=== PATIENT | female | born 1960 | race Caucasian/White ===

== ENCOUNTER 2019-04-11 10:31 | Observation (INO) ==
[2019-04-11] MEDS ORDERED: Aspirin 81 MG TAB.CHEW PO ONE (10:52)
[2019-04-11] MEDS ORDERED: Isovue-370 500 ML BOTTLE IVP ONE (11:00)
[2019-04-11 11:22] LABS: Basophils # 0.1 K/mcL (0.0-0.2); Basophils % 0.9 %; Eosinophils # 0.3 K/mcL (0.0-0.6); Eosinophils % 3.2 %; Hematocrit 42.4 % (35.3-44.9); Hemoglobin 13.5 g/dL (11.5-15.4); Immature Granulocytes % 0.9 % (0-4); Lymphocytes # 2.2 K/mcL (0.6-4.6); Lymphocytes % 20.7 %; Mean Corpuscular HGB Conc 31.8 g/dL (31.6-35.5); Mean Corpuscular Hemoglobin 28.4 pg (28.0-33.3); Mean Corpuscular Volume 89.3 fL (83.0-100.0); Mean Platelet Volume 10.4 fL (9.4-12.4); Monocytes # 0.9 K/mcL (0.0-1.3); Monocytes % 8.4 %; Platelet Count 271 K/mcL (140-400); Red Blood Count 4.75 M/mcL (3.82-4.97); Red Cell Distribution Width 14.8 % (11.5-14.5); Segmented Neutrophils % 65.9 %; White Blood Count 10.6 K/mcL (4.3-11.1)
[2019-04-11 11:35] LABS: INR 0.9; Prothrombin Time 9.9 Seconds (9.4-12.1)
[2019-04-11 11:37] LABS: Activated Partial Thrombo Time 27.5 Seconds (26.0-36.0)
[2019-04-11 11:43] LABS: BUN/Creatinine Ratio 24 (6-26); Blood Urea Nitrogen 23 mg/dL (8-23); Calcium 9.5 mg/dL (8.6-10.3); Carbon Dioxide 27 mEq/L (23-29); Chloride 104 mEq/L (98-107); Glucose 116 mg/dL (70-105); Osmolality,Calculated 295 (280-300); Potassium 4.3 mEq/L (3.5-5.1); Sodium 140 mEq/L (136-145); Troponin I < 0.03 ng/mL (< 0.04); eGFR For African Americans > 60 (> 60); eGFR For Non-African Americans 59 (> 60)
[2019-04-11 11:57] LABS: Bilirubin,Urine Negative (Negative); Blood,Urine Negative (Negative); Clarity,Urine Clear (Clear); Color,Urine Yellow (Yellow); Glucose,Urine (UA) Normal (Normal); Ketones,Urine Negative (Negative); Leukocyte Esterase,Urine Trace (Negative); Nitrite,Urine Negative (Negative); Protein,Urine Negative (Neg-Trace); Specific Gravity,Urine 1.018 (1.010-1.025); Urobilinogen,Urine Normal (Normal)
[2019-04-11 11:59] LABS: Bacteria,Urine None Seen per hpf (None-Few); Hyaline Casts,Urine None Seen per lpf (None-Few); RBC,Urine 0-3 per hpf (0-3); Squamous Epithelial Cell,Urine Many per lpf (None-Few); WBC,Urine 0-3 per hpf (0-3)
--- NOTE | 2019-04-11 12:33 | Emergency Department Note ---
Disposition Clinical Impression: Hypertension Qualifiers: Hypertension type: unspecified Qualified Code(s): I10 - Essential (primary) hypertension Chest pain Qualifiers: Chest pain type: unspecified Qualified Code(s): R07.9 - Chest pain, unspecified Disposition: Admitted As Inpatient Condition: Fair Time of Disposition: 14:00 Chest Pain HPI - General Chief Complaint: ED General Medical Stated Complaint: Hypertension Time Seen by Provider: 04/11/19 10:36 Source: patient Mode of arrival: private vehicle Limitations: no limitations Vital Signs Reviewed: Yes Nursing Notes Reviewed: Yes - History of Present Illness HPI Narrative: 59-year-old female who recently had a heart catheterization with stent placement one month ago that states that since the catheterization she has been feeling lightheaded, intermittent chest tightness, shortness of breath, intermittent diaphoresis. Patient was started on a number of medications after her catheterization and states that since her She is just not felt well. Patient states that there are no exacerbating or relieving factors for her chest heaviness or shortness of breath. She also states that she could be getting out of the bath and all of a sudden break out in a sweat. She notes that they drove to [place] near the end of March. She also notes bilateral lower extremity pain with palpation. She notes a history of PE several years ago. She is on Brlinta for anticoagulation. Severity scale (1-10): 0 - Related Data Home Medications Medication Instructions Recorded Confirmed Aspirin [Lo-Dose Aspirin EC] 81 mg PO DAILY 01/02/19 04/11/19 Furosemide [Lasix] 40 mg PO DAILY PRN 01/02/19 04/11/19 Lisinopril/Hydrochlorothiazide 1 each PO DAILY 01/02/19 04/11/19 [Zestoretic 10-12.5 mg Tablet] Meloxicam [Mobic] 15 mg PO DAILY 01/02/19 04/11/19 Nitroglycerin [Nitrostat] 0.4 mg SL Q5M PRN 01/02/19 04/11/19 Potassium Chloride [K-Tab ER] 20 meq PO DAILY 01/02/19 04/11/19 Pravastatin Sodium [Pravachol] 80 mg PO HS 01/02/19 04/11/19 Keflex PO QID 04/11/19 Previous Rx's Medication Instructions Recorded Ticagrelor [Brilinta] 90 mg PO BID #60 tablet 01/02/19 Allergies Allergy/AdvReac Type Severity Reaction Status Date / Time penicillin V Allergy Rash Verified 03/19/16 07:18 Review of Systems: In addition to that documented in the HPI above, the additional ROS was obtained: Constitutional: Denies fevers or chills Eyes: Denies vision changes ENMT: Denies sore throat CV: reports intermittent chest heaviness Resp: Reports intermittent SOB GI: Denies vomiting or diarrhea : Denies painful urination MSK: Denies recent trauma Skin: Denies new rashes Neuro: Denies new numbness or tingling or weakness Endocrine: Denies unexpected weight loss Heme: Denies bleeding disorders Chest Pain PMH - Past Medical History Medical history: Reports: arthritis, hyperlipidemia, hypertension Surgical history: Reports: other Psychiatric history: Reports: no psych history - Social History Smoking Status: Former smoker Alcohol use: Reports: none Drug use: Reports: none Physical Exam General: A&O x 3. No acute distress. Well developed, well nourished. Head: atraumatic, normocephalic. ENT: No conjunctival injection, no scleral icterus. PERRLA. EOMI. Oropharynx non- erythematous. mucous membranes moist. Neuro: No focal deficits, no speech deficit, no facial droop, mentating well. BUE/BLE Str 5/5. Pulm: Lungs CTAB A/P. No wheezes, rales, ronchi. Cardio: RRR with allison-systolic murmur best appreciated in aortic LP 3/6. Chest not tender to palpation. Abd: Soft, non-distended. Normoactive bowel sounds. Non-tender to palpation. No guarding. Non rigid. Extremities: Radial pulses 2+ on left. dorsalis pedis/posterior tibialis 2+ yuli. No LE edema. No cyanosis, clubbing. Skin: warm, dry, intact. No rashes. Psych: Appropriate mood and affect. Answers questions appropriately. Cooperative with exam. - General Limitations: no limitations General appearance: alert, in no apparent distress Course Vital Signs Temperature 97.6 F 04/11/19 10:36 Pulse Rate 61 04/11/19 10:36 Respiratory Rate 18 04/11/19 10:36 Blood Pressure 145/98 04/11/19 10:36 O2 Sat by Pulse Oximetry 97 04/11/19 10:36 Temperature 97.6 F 04/11/19 10:36 Pulse Rate 64 04/11/19 13:35 Respiratory Rate 17 04/11/19 13:35 Blood Pressure 106/54 04/11/19 13:35 O2 Sat by Pulse Oximetry 100 04/11/19 13:35 Oxygen Delivery Oxygen Delivery Room Air Chest Pain - MDM Narrative Medical decision making narrative: 59-year-old female with a past medical history of heart catheterization approximately one month ago with placement of stent. Patient notes that since that time she has just been feeling weak, worn down, with intermittent chest pressure associated with intermittent diaphoresis and shortness of breath. Given patient's history and risk factors she could benefit from further inpatien t workup. Additionally patient has a history of aortic stenosis, she had an echo in November of this year which diagnosed it as moderate aortic stenosis. Patient will receive a chest x-ray, EKG, chest pain workup including CBC and troponin. Pt was given an aspirin. Patient was admitted to the hospitalist Dr. Emanuel who agreed to take the patient to his care. Results of the workup including any imaging and/or labwork was shared with the patient at bedside. Patient was given an opportunity to ask questions at bedside and all of their concerns were addressed. Patient verbalized understanding and agreement with plan of care. Pt remained stable while in the department. - Medical Records Medical records reviewed: Yes I reviewed the patient's medical records. - Lab Data Lab results reviewed: Yes I reviewed the patient's lab results. Result diagrams: 04/11/19 11:09 04/11/19 11:09 Lab Results 04/11/19 04/11/19 04/11/19 Range/Units 11:09 11:09 11:09 WBC 10.6 (4.3-11.1) K/mcL RBC 4.75 (3.82-4.97) M/mcL Hgb 13.5 (11.5-15.4) g/dL Hct 42.4 (35.3-44.9) % MCV 89.3 (83.0-100.0) fL MCH 28.4 (28.0-33.3) pg MCHC 31.8 (31.6-35.5) g/dL RDW 14.8 H (11.5-14.5) % Plt Count 271 (140-400) K/mcL MPV 10.4 (9.4-12.4) fL Immature Gran % 0.9 (0-4) % Seg Neutrophils % 65.9 % Lymphocytes % 20.7 % Monocytes % 8.4 % Eosinophils % 3.2 % Basophils % 0.9 % Neutrophils # 7.0 (1.6-8.9) K/mcL Lymphocytes # 2.2 (0.6-4.6) K/mcL Monocytes # 0.9 (0.0-1.3) K/mcL Eosinophils # 0.3 (0.0-0.6) K/mcL Basophils # 0.1 (0.0-0.2) K/mcL PT 9.9 (9.4-12.1) Seconds INR 0.9 APTT 27.5 (26.0-36.0) Seconds Sodium 140 (136-145) mEq/L Potassium 4.3 (3.5-5.1) mEq/L Chloride 104 (98-107) mEq/L Carbon Dioxide 27 (23-29) mEq/L BUN 23 (8-23) mg/dL Creatinine 0.96 (0.60-1.20) mg/dL Est GFR ( Amer) > 60 (> 60) Est GFR (Non-Af Amer) 59 L (> 60) BUN/Creatinine Ratio 24 (6-26) Glucose 116 H (70-105) mg/dL Calculated Osmolality 295 (280-300) Calcium 9.5 (8.6-10.3) mg/dL Troponin I < 0.03 (< 0.04) ng/mL Urine Color (Yellow) Urine Clarity (Clear) Urine pH (5.0-8.0) pH Units Ur Specific [place] (1.010-1.025) Urine Protein (Neg-Trace) mg/dL Urine Glucose (UA) (Normal) mg/dL Urine Ketones (Negative) mg/dL Urine Blood (Negative) Urine Nitrite (Negative) Urine Bilirubin (Negative) Urine Urobilinogen (Normal) mg/dL Ur Leukocyte Esterase (Negative) Urine Microscopic RBC (0-3) per hpf Urine Microscopic WBC (0-3) per hpf Ur Squamous Epith Cells (None-Few) per lpf Urine Bacteria (None-Few) per hpf Hyaline Casts (None-Few) per lpf Ur Culture Indicated? (NO) 04/11/19 Range/Units 11:35 WBC (4.3-11.1) K/mcL RBC (3.82-4.97) M/mcL Hgb (11.5-15.4) g/dL Hct (35.3-44.9) % MCV (83.0-100.0) fL MCH (28.0-33.3) pg MCHC (31.6-35.5) g/dL RDW (11.5-14.5) % Plt Count (140-400) K/mcL MPV (9.4-12.4) fL Immature Gran % (0-4) % Seg Neutrophils % % Lymphocytes % % Monocytes % % Eosinophils % % Basophils % % Neutrophils # (1.6-8.9) K/mcL Lymphocytes # (0.6-4.6) K/mcL Monocytes # (0.0-1.3) K/mcL Eosinophils # (0.0-0.6) K/mcL Basophils # (0.0-0.2) K/mcL PT (9.4-12.1) Seconds INR APTT (26.0-36.0) Seconds Sodium (136-145) mEq/L Potassium (3.5-5.1) mEq/L Chloride (98-107) mEq/L Carbon Dioxide (23-29) mEq/L BUN (8-23) mg/dL Creatinine (0.60-1.20) mg/dL Est GFR ( Amer) (> 60) Est GFR (Non-Af Amer) (> 60) BUN/Creatinine Ratio (6-26) Glucose (70-105) mg/dL Calculated Osmolality (280-300) Calcium (8.6-10.3) mg/dL Troponin I (< 0.04) ng/mL Urine Color Yellow (Yellow) Urine Clarity Clear (Clear) Urine pH 6.0 (5.0-8.0) pH Units Ur Specific [place] 1.018 (1.010-1.025) Urine Protein Negative (Neg-Trace) mg/dL Urine Glucose (UA) Normal (Normal) mg/dL Urine Ketones Negative (Negative) mg/dL Urine Blood Negative (Negative) Urine Nitrite Negative (Negative) Urine Bilirubin Negative (Negative) Urine Urobilinogen Normal (Normal) mg/dL Ur Leukocyte Esterase Trace H (Negative) Urine Microscopic RBC 0-3 (0-3) per hpf Urine Microscopic WBC 0-3 (0-3) per hpf Ur Squamous Epith Cells Many H (None-Few) per lpf Urine Bacteria None Seen (None-Few) per hpf Hyaline Casts None Seen (None-Few) per lpf Ur Culture Indicated? YES A (NO) - Radiology Data Radiology results reviewed: Yes I reviewed the patient's radiology results. Chest X-Ray 04/11/19 10:52 IMPRESSION: 1. No radiographic finding to account for patient's chest pain. D/ / Jose Stapleton MD / Jose Stapleton MD Interpreting Provider: Jose Stapleton MD Dissection 04/11/19 11:00 IMPRESSION: 1. No evidence of thoracic aortic dissection, aneurysm, or intramural hematoma. 2. Coronary artery atherosclerosis. 3. Hepatic steatosis. 4. Sigmoid diverticulosis. No evidence of diverticulitis. D/ : / 04/11/2019 12:56:58 Jose Stapleton MD / ita Interpreting Provider: Jose Stapleton MD - EKG Data EKG attestation: Yes I reviewed and interpreted this EKG. EKG results narrative: Heart rate 62, rhythm sinus, axis normal. Intervals within normal limits. Low voltage and extremity in precordial leads. Less than [address] depression noted in leads V3, V5. Flattened T waves noted in lead V1, V6. T-wave inversion noted in lead V2 through V5. When compared with previous EKG dated 01/02/2019 the previous EKG also shows ST depression but in leads V2 through V5 with T-wave inversions in the same leads. The current EKG is improved from previous. Heart Score - Score History: Moderately Suspicious EKG: Non Specific repolarisation Disturbance Age: 45-65 Risk Factors: Equal/Greater than 3 risk factor or history of atherosclerotic disease Troponin: Less than normal limit HEART Score Total: 5
--- NOTE | 2019-04-11 13:29 | Internal Med History&Physical ---
Date of Encounter: 04/11/19 Time of Encounter: 13:14 Internal Medicine - H&P: HPI Chief complaint: Chest Pressure Admitted From: Home Plans for Post Hospital Care: Home History of present illness: Ms. 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 Patient had recent PCI to her RCA 01/02/19. Of note, all other vessels with minimal disease. Says she has never fully recovered from this procedure and experiences profound RAYA. Denies orthopnea or LE edema. Does occasionally have exertional chest pain 1-2 times per week that goes away with rest. BP has been variable but mostly low-nl since her [facility]. Says SBP 160's in the morning but the rest of the days SBP is in the 90's and patient feels lightheadedness/dizziness from this. Takes her BP with 3 different machines with similar readings. Went to loom operator apprentice office today and SBP >220 and patient complaining of her usual periodic chest pains so was sent to the ED. In the ED, initial BP of 129/72 and all other VSS. EKG without ischemic changes. Initial trop negative. UA with trace LE and reflexed to culture. CXR and CTA chest without acute findings. Admitted to medicine. Past Med Surg Social Fam HX - Past Medical History Medical history: arthritis, hyperlipidemia, hypertension Psychiatric history: no psych history - Past Surgical History Surgical History: other Additional surgical history: TUBAL LIGATION - Social History Smoking Status: Former smoker Smokeless Tobacco Status: No Alcohol use: none Drug use: none - Family History Mother Living Status: Still Living Internal Medicine - H&P: Meds Aspirin [Lo-Dose Aspirin EC] 81 mg PO DAILY 01/02/19 [History] Furosemide [Lasix] 40 mg PO DAILY PRN 01/02/19 [History] Lisinopril/Hydrochlorothiazide [Zestoretic 10-12.5 mg Tablet] 1 each PO DAILY 01/02/19 [History] Meloxicam [Mobic] 15 mg PO DAILY 01/02/19 [History] Nitroglycerin [Nitrostat] 0.4 mg SL Q5M PRN 01/02/19 [History] Potassium Chloride [K-Tab ER] 20 meq PO DAILY 01/02/19 [History] Pravastatin Sodium [Pravachol] 80 mg PO HS 01/02/19 [History] Ticagrelor [Brilinta] 90 mg PO BID #60 tablet 01/02/19 [Rx] Keflex PO QID 04/11/19 [History] Allergy/AdvReac Type Severity Reaction Status Date / Time penicillin V Allergy Rash Verified 03/19/16 07:18 All Systems PM: A 10-system review of systems was performed and is negative for pertinent findings except as documented above in the HPI. Review of systems: General: Fevers / Chills / Weight loss / Night sweats / Diaphoresis Eyes: Blurry Vision / Change in Vision HENT: Ear Pain / Ear Drainage / Rhinorrhea / Throat Pain / Lymphadenopathy Cardiovascular: Chest Pain / Palpatations / Orthopnea / RAYA / Weight gain Lungs: Dyspnea / Wheezing / Cough / Sputum production / Pleurisy Abdomen: Abdomen pain / Abdominal distention / Nausea / Vomiting / Diarrhea / Const : Dysuria / Urinary Frequency / Urinary Urgency / Hematuria Extremities: LE edema / Ext pain / Ext erythema Skin: Rashes / Abrasions / Contusions Psych: Hallucinations / Anxiety / Depression Neuro: Weakness / Numbness / Tingling / Facial Droop / Dysphagia - Constitutional Vitals: Temp Pulse Resp BP Pulse Ox 97.6 F 53 18 129/72 99 04/11/19 10:36 04/11/19 11:20 04/11/19 11:20 04/11/19 11:20 04/11/19 11:20 Exam: General: Ill-appearing and in no acute distress HEENT: No erythema of posterior pharynx. No exudates. Lymphatics: No mandibular or cervical lymphadenopathy Cardiovascular: RRR. No murmurs. No chest wall tenderness. Lungs: Clear to auscelltation bilaterally. Regular chest rise. Abdomen: Non-tender. No rebound or gaurding. Nl bowel sounds. Extremities: No edema. 2+ pulses radial and pedal pulses Skin: No rahses, abrasions, or contusions. Nl cap refill. Psych: Nl attention. A&Ox3 Neuro: tanning solution maker II-XII intact. 5/5 strength. Sensation to light touch and pinprick intact. Internal Med - H&P Results - Labs CBC & Chem 7: 04/11/19 11:09 04/11/19 11:09 Labs: Short CBC 04/11/19 Range/Units 11:09 WBC 10.6 (4.3-11.1) K/mcL Hgb 13.5 (11.5-15.4) g/dL Hct 42.4 (35.3-44.9) % Plt Count 271 (140-400) K/mcL Neutrophils # 7.0 (1.6-8.9) K/mcL BMP 04/11/19 11:09 Sodium 140 Potassium 4.3 Chloride 104 Carbon Dioxide 27 BUN 23 Creatinine 0.96 Glucose 116 H Calcium 9.5 Cardiac Enzymes 04/11/19 Range/Units 11:09 Troponin I < 0.03 (< 0.04) ng/mL Urine 04/11/19 Range/Units 11:35 Urine Color Yellow (Yellow) Urine Clarity Clear (Clear) Urine pH 6.0 (5.0-8.0) pH Units Ur Specific [place] 1.018 (1.010-1.025) Urine Protein Negative (Neg-Trace) mg/dL Urine Glucose (UA) Normal (Normal) mg/dL - Impressions ITS Impressions Chest X-Ray 04/11/19 10:52 IMPRESSION: 1. No radiographic finding to account for patient's chest pain. D/ / Jose Stapleton MD / Jose Stapleton MD Interpreting Provider: Jose Stapleton MD Dissection 04/11/19 11:00 IMPRESSION: 1. No evidence of thoracic aortic dissection, aneurysm, or intramural hematoma. 2. Coronary artery atherosclerosis. 3. Hepatic steatosis. 4. Sigmoid diverticulosis. No evidence of diverticulitis. D/ : / 04/11/2019 12:56:58 Jose Stapleton MD / ita Interpreting Provider: Jose Stapleton MD - Assessment and Plan (1) Chest pain Current Visit: Yes Status: Acute Assessment and plan: hx of CAD s/p LIANET to RCA 01/02/19, HTN, and HFpEF presents with chest pain in the setting of stable vitals, unremarkable physical exam, EKG without ischemic changes, negative initial troponin, and CTA of the chest without evidence of dissection. -Patient still having intermittent cp since last [facility] -Minimal CAD in other vessels so less likely this represents ischemic heart disease unless catastrophic plaque rupture PLAN: - S/p ASA 324mg x1 then 81mg qd thereafter - Serial troponins - Continue home CHRIS, statin, and BB Qualifiers: Chest pain type: other chest pain Qualified Code(s): R07.89 - Other chest pain; R07.8 - Other chest pain (2) CAD (coronary artery disease) Current Visit: Yes Status: Acute Assessment and plan: See above Qualifiers: Coronary Disease-Associated Artery/Lesion type: [place] artery [place] vs. transplanted heart: [place] heart Associated angina: with stable angina Qualified Code(s): I25.118 - Atherosclerotic heart disease of [place] coronary artery with other forms of angina pectoris (3) RAYA (dyspnea on exertion) Current Visit: Yes Status: Acute Assessment and plan: Presents with dyspnea on exertion since [facility] completed in December. -No signs of heart failure on exam and patient denies orthopnea or lower extremity edema. We will obtain BNP -Hx of CAD but disease not extensive and is s/p RCA stent -Low-nl BP at baseline. May need to go down on BP meds (especially metoprolol) because this can cause exertional fatigue -Very possible patient has JOSEPH with or without PH. Failed at home sleep study and prior auth needed for inpatient sleep study so hasn't completed this yet -Hx of moderate and she and her family is concerned that this has progressed and is causing her sx (unlikely given last TTE only months ago) -We will assess for thyroid disease with TSH PLAN: - Consult to cardiology given follows closely with cards and recent [facility] - Consult to cardiac rehab - may be of benefit for patient at time of discharge - Cut back on metoprolol dosing once med rec is complete - Will have SW see status of prior auth for sleep study - Limited echo to eval for progression of and R-sided pressures - TSH (4) Aortic stenosis Current Visit: Yes Status: Acute Assessment and plan: See above Qualifiers: Cardiac valve disease etiology: nonrheumatic Qualified Code(s): I35.0 - Nonrheumatic aortic (valve) stenosis (5) Labile blood pressure Current Visit: Yes Status: Acute Assessment and plan: 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 Hypertensive at loom operator apprentice's office but normally low normal blood pressures and is symptomatic from this. Also history of diffuse episodic diaphoresis. Will check plasma metanephrines. - Cut back on metoprolol dosing once med rec is complete - Plasma metanephrines
--- NOTE | 2019-04-11 14:03 | Emergency Department Note ---
Disposition Clinical Impression: Hypertension Qualifiers: Hypertension type: unspecified Qualified Code(s): I10 - Essential (primary) hypertension Chest pain Qualifiers: Chest pain type: unspecified Qualified Code(s): R07.9 - Chest pain, unspecified Disposition: Admitted As Inpatient Condition: Good Time of Disposition: 14:04 General Adult HPI - General Chief complaint: ED General Medical Stated complaint: Hypertension Time Seen by Provider: 04/11/19 10:36 Source: patient Mode of arrival: private vehicle Limitations: no limitations - History of Present Illness Pain Scale: 0 - Related Data Home Medications Medication Instructions Recorded Confirmed Aspirin [Lo-Dose Aspirin EC] 81 mg PO DAILY 01/02/19 01/02/19 Furosemide [Lasix] 40 mg PO DAILY PRN 01/02/19 01/02/19 Lisinopril/Hydrochlorothiazide 1 each PO DAILY 01/02/19 01/02/19 [Zestoretic 10-12.5 mg Tablet] Meloxicam [Mobic] 15 mg PO DAILY 01/02/19 01/02/19 Nitroglycerin [Nitrostat] 0.4 mg SL Q5M PRN 01/02/19 01/02/19 Potassium Chloride [K-Tab ER] 20 meq PO DAILY 01/02/19 01/02/19 Pravastatin Sodium [Pravachol] 80 mg PO HS 01/02/19 01/02/19 Previous Rx's Medication Instructions Recorded Ticagrelor [Brilinta] 90 mg PO BID #60 tablet 01/02/19 Allergies Allergy/AdvReac Type Severity Reaction Status Date / Time penicillin V Allergy Rash Verified 03/19/16 07:18 Past Medical History - Past Medical History Medical history: Reports: arthritis, hyperlipidemia, hypertension Surgical history: Reports: other Psychiatric history: Reports: no psych history - Social History Smoking Status: Former smoker Smokeless Tobacco Status: No Alcohol use: Reports: none Drug use: Reports: none Physical Exam - General Limitations: no limitations General appearance: alert, in no apparent distress Course Vital Signs Temperature 97.6 F 04/11/19 10:36 Pulse Rate 61 04/11/19 10:36 Respiratory Rate 18 04/11/19 10:36 Blood Pressure 145/98 04/11/19 10:36 O2 Sat by Pulse Oximetry 97 04/11/19 10:36 Temperature 97.6 F 04/11/19 10:36 Pulse Rate 64 04/11/19 13:35 Respiratory Rate 17 04/11/19 13:35 Blood Pressure 106/54 04/11/19 13:35 O2 Sat by Pulse Oximetry 100 04/11/19 13:35 Oxygen Delivery Oxygen Delivery Room Air Medical Decision Making - Lab Data Result diagrams: 04/11/19 11:09 04/11/19 11:09 Lab Results 04/11/19 04/11/19 04/11/19 Range/Units 11:09 11:09 11:09 WBC 10.6 (4.3-11.1) K/mcL RBC 4.75 (3.82-4.97) M/mcL Hgb 13.5 (11.5-15.4) g/dL Hct 42.4 (35.3-44.9) % MCV 89.3 (83.0-100.0) fL MCH 28.4 (28.0-33.3) pg MCHC 31.8 (31.6-35.5) g/dL RDW 14.8 H (11.5-14.5) % Plt Count 271 (140-400) K/mcL MPV 10.4 (9.4-12.4) fL Immature Gran % 0.9 (0-4) % Seg Neutrophils % 65.9 % Lymphocytes % 20.7 % Monocytes % 8.4 % Eosinophils % 3.2 % Basophils % 0.9 % Neutrophils # 7.0 (1.6-8.9) K/mcL Lymphocytes # 2.2 (0.6-4.6) K/mcL Monocytes # 0.9 (0.0-1.3) K/mcL Eosinophils # 0.3 (0.0-0.6) K/mcL Basophils # 0.1 (0.0-0.2) K/mcL PT 9.9 (9.4-12.1) Seconds INR 0.9 APTT 27.5 (26.0-36.0) Seconds Sodium 140 (136-145) mEq/L Potassium 4.3 (3.5-5.1) mEq/L Chloride 104 (98-107) mEq/L Carbon Dioxide 27 (23-29) mEq/L BUN 23 (8-23) mg/dL Creatinine 0.96 (0.60-1.20) mg/dL Est GFR ( Amer) > 60 (> 60) Est GFR (Non-Af Amer) 59 L (> 60) BUN/Creatinine Ratio 24 (6-26) Glucose 116 H (70-105) mg/dL Calculated Osmolality 295 (280-300) Calcium 9.5 (8.6-10.3) mg/dL Troponin I < 0.03 (< 0.04) ng/mL Urine Color (Yellow) Urine Clarity (Clear) Urine pH (5.0-8.0) pH Units Ur Specific [place] (1.010-1.025) Urine Protein (Neg-Trace) mg/dL Urine Glucose (UA) (Normal) mg/dL Urine Ketones (Negative) mg/dL Urine Blood (Negative) Urine Nitrite (Negative) Urine Bilirubin (Negative) Urine Urobilinogen (Normal) mg/dL Ur Leukocyte Esterase (Negative) Urine Microscopic RBC (0-3) per hpf Urine Microscopic WBC (0-3) per hpf Ur Squamous Epith Cells (None-Few) per lpf Urine Bacteria (None-Few) per hpf Hyaline Casts (None-Few) per lpf Ur Culture Indicated? (NO) 04/11/19 Range/Units 11:35 WBC (4.3-11.1) K/mcL RBC (3.82-4.97) M/mcL Hgb (11.5-15.4) g/dL Hct (35.3-44.9) % MCV (83.0-100.0) fL MCH (28.0-33.3) pg MCHC (31.6-35.5) g/dL RDW (11.5-14.5) % Plt Count (140-400) K/mcL MPV (9.4-12.4) fL Immature Gran % (0-4) % Seg Neutrophils % % Lymphocytes % % Monocytes % % Eosinophils % % Basophils % % Neutrophils # (1.6-8.9) K/mcL Lymphocytes # (0.6-4.6) K/mcL Monocytes # (0.0-1.3) K/mcL Eosinophils # (0.0-0.6) K/mcL Basophils # (0.0-0.2) K/mcL PT (9.4-12.1) Seconds INR APTT (26.0-36.0) Seconds Sodium (136-145) mEq/L Potassium (3.5-5.1) mEq/L Chloride (98-107) mEq/L Carbon Dioxide (23-29) mEq/L BUN (8-23) mg/dL Creatinine (0.60-1.20) mg/dL Est GFR ( Amer) (> 60) Est GFR (Non-Af Amer) (> 60) BUN/Creatinine Ratio (6-26) Glucose (70-105) mg/dL Calculated Osmolality (280-300) Calcium (8.6-10.3) mg/dL Troponin I (< 0.04) ng/mL Urine Color Yellow (Yellow) Urine Clarity Clear (Clear) Urine pH 6.0 (5.0-8.0) pH Units Ur Specific [place] 1.018 (1.010-1.025) Urine Protein Negative (Neg-Trace) mg/dL Urine Glucose (UA) Normal (Normal) mg/dL Urine Ketones Negative (Negative) mg/dL Urine Blood Negative (Negative) Urine Nitrite Negative (Negative) Urine Bilirubin Negative (Negative) Urine Urobilinogen Normal (Normal) mg/dL Ur Leukocyte Esterase Trace H (Negative) Urine Microscopic RBC 0-3 (0-3) per hpf Urine Microscopic WBC 0-3 (0-3) per hpf Ur Squamous Epith Cells Many H (None-Few) per lpf Urine Bacteria None Seen (None-Few) per hpf Hyaline Casts None Seen (None-Few) per lpf Ur Culture Indicated? YES A (NO) Attestation Statement - Attestation Attestation: I reviewed the residents documentation and agree with the residents assessment and plan of care. I have personally had face to face time with the patient. (Brief History, Brief Exam, and MDM) I personally supervised and was present for the srivastava/critical portions of the following procedures completed by the resident: EKG 59 mathew old female presets to the ED from Cardiology office where she was found to be increasingly hypertensive and diaphoretic and exertional dyspnea. Patient states that she has one cardiac stent that was placed in January by Dr. briseno of this year. [place] is not hyeprtensive now but has been fluctuatin in her blood presure while being here. CTA dissection study is negative and she otherwise has a moderate heart score and becase she was symptomatic we will admit to fco. troponin negative at this time, although the possibily for elevation is there, bselin EKG without changes of new ischemic changes
[2019-04-11] MEDS ORDERED: *HR* Promethazine 25 MG/ML VIAL IVP PRN (14:33)
[2019-04-11] MEDS ORDERED: Ondansetron ODT 4 MG TAB.RAPDIS SL PRN (14:33)
[2019-04-11] MEDS ORDERED: Naloxone 0.4 MG/ML INJ IVP PRN (14:33)
--- NOTE | 2019-04-11 15:20 | Electrocardiograph Report ---
[address] [address] Test Date: 2019-04-11 Pat Name: 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
[2019-04-11] MEDS ORDERED: Nitroglycerin 0.4 MG TAB.SUBL SL PRN (15:54)
[2019-04-11] MEDS: *HR* Heparin 5,000 UNIT/ML VIAL SQ SCH (17:46)
[2019-04-11] MEDS: *HR* Ticagrelor 90 MG TABLET PO SCH (21:16)
[2019-04-12 02:20] LABS: Basophils # 0.1 K/mcL (0.0-0.2); Basophils % 0.8 %; Eosinophils # 0.4 K/mcL (0.0-0.6); Eosinophils % 4.1 %; Hematocrit 39.4 % (35.3-44.9); Hemoglobin 12.6 g/dL (11.5-15.4); Immature Granulocytes % 0.6 % (0-4); Lymphocytes # 2.5 K/mcL (0.6-4.6); Lymphocytes % 25.3 %; Mean Corpuscular Hemoglobin 29.1 pg (28.0-33.3); Mean Platelet Volume 10.5 fL (9.4-12.4); Monocytes # 0.9 K/mcL (0.0-1.3); Monocytes % 8.9 %; Neutrophils # 5.9 K/mcL (1.6-8.9); Platelet Count 256 K/mcL (140-400); Red Blood Count 4.33 M/mcL (3.82-4.97); Red Cell Distribution Width 14.9 % (11.5-14.5); Segmented Neutrophils % 60.3 %; White Blood Count 9.7 K/mcL (4.3-11.1)
[2019-04-12 02:41] LABS: BUN/Creatinine Ratio 24 (6-26); Blood Urea Nitrogen 23 mg/dL (8-23); Calcium 9.2 mg/dL (8.6-10.3); Carbon Dioxide 28 mEq/L (23-29); Chloride 104 mEq/L (98-107); Glucose 127 mg/dL (70-105); Osmolality,Calculated 295 (280-300); Potassium 3.9 mEq/L (3.5-5.1); Sodium 140 mEq/L (136-145); eGFR For African Americans > 60 (> 60); eGFR For Non-African Americans 60 (> 60)
[2019-04-12] MEDS: *HR* Heparin 5,000 UNIT/ML VIAL SQ SCH ×2 (06:08→18:35)
[2019-04-12 06:32] LABS: Troponin I < 0.03 ng/mL (< 0.04)
[2019-04-12] MEDS: Aspirin Enteric Coated 81 MG Tablet PO SCH (09:42)
[2019-04-12] MEDS: *HR* Ticagrelor 90 MG TABLET PO SCH ×2 (09:42→20:05)
--- NOTE | 2019-04-12 10:28 | Cardiology Consult Note ---
Date of Encounter: 04/12/19 Time of Encounter: 09:30 Assessment and Plan (1) CAD (coronary artery disease) Current Visit: Yes Status: Chronic Chest pain free at time of eval. Troponins negative x2. EKG reviewed, NSR without ischemic changes. Reports occasional chest tightness that begins in her left shoulder but believes it is related to her torn rotator cuff. Reports discomfort lasts a short time and goes away on it's own. Denies use of Nitro. -[facility] 01/02/19: severe 1v CAD, LV is normal EF 55%, successful LIANET to mid RCA, otherwise mild disease. Denies any missed doses of DAPT. Continue ASA, Brilinit and statin. BB currently on hold for hypotension. Qualifiers: Coronary Disease-Associated Artery/Lesion type: rincon artery [place] vs. transplanted heart: rincon heart Associated angina: without angina Qualified Code(s): I25.10 - Atherosclerotic heart disease of r[place] coronary artery without angina pectoris (2) Hypertension Current Visit: Yes Status: Acute Blood pressure reportedly 220/140 and 240/100 when presented to see Dr. Sawant in our office yesterday. Brought to the ED and initial blood pressure was 145/98. Home anti-hypertensives have been held and blood pressure over night 89-136 systolic. Episodic blood pressures consistent with patient's reported home blood pressures. Will order orthostatic blood pressures. Lab results pending to assess for pheoc hromocytoma. Will restart HCTZ 12.5mg for now. Vital Signs Temp Pulse Resp BP Pulse Ox 04/12/19 12:42 98.5 F 85 17 166/85 96 04/12/19 06:29 97.9 F 94 16 106/75 95 04/12/19 03:14 97.7 F 81 16 136/83 97 04/11/19 23:51 97.9 F 86 18 89/64 95 04/11/19 19:13 97.9 F 85 17 96/64 97 04/11/19 16:59 98.4 F 77 17 90/61 95 04/11/19 13:35 64 17 106/54 100 Qualifiers: Hypertension type: unspecified Qualified Code(s): I10 - Essential (primary) hypertension (3) RAYA (dyspnea on exertion) Current Visit: Yes Status: Acute States dyspnea, diaphoresis and fatigue have been chronic but worsening in the past few months. Denies palpitations and swelling in her legs. Has Lasix at home and reportedly has not had to use it recently. Hospitalist is evaluating patient for possible Pheochromocytoma. (4) Aortic stenosis Current Visit: Yes Status: Acute Echo 12/08/2018: LVEF 65%, Moderate aortic stenosis with mean gradient 20 mmHg. Repeat echo today with EF 60-65%, now with moderate-severe aortic stenosis, mean gradient 36 mmHg. Will plan to repeat echo in 6 months. Qualifiers: Cardiac valve disease etiology: nonrheumatic Qualified Code(s): I35.0 - Nonrheumatic aortic (valve) stenosis Discussion w patient/family: The assessment and plan as outlined above was discussed with the patient and/or family members who expressed understanding and agreement. All questions were answered. Thank you for involving us in the care of your patient. Please call with any questions. The above assessment and plan will be discussed with Dr. Watson and I will make changes as necessary. History of Present Illness Consult date: 04/11/19 Consult reason: RAYA & fatigue, s/p LIANET in December History of present illness: Ms. Singh is a 59 year old female with PMH of CAD s/p LIANET to RCA 01/02/19, HTN, HFpEF, and mod presents after being sent over by Dr. Sawant's office for HTN and chest pain. Patient had recent PCI to her RCA 01/02/19. Of note, all other vessels with minimal disease. Says she has never fully recovered from this procedure and experiences profound RAYA. Denies orthopnea or LE edema. Does occasionally have exertional chest pain 1-2 times per week that goes away with rest. BP has been variable but mostly low-nl since her [facility]. Says SBP 160's in the morning but the rest of the days SBP is in the 90's and patient feels lightheadedness/dizziness from this. Takes her BP with 3 different machines with similar readings. Blood prssure in our office yesterday was SBP >220 and patient complaining of her usual periodic chest pains so was sent to the ED. In the ED, initial BP of 129/72. Past Med Surg Social Fam HX - Past Medical History Medical history: arthritis, hyperlipidemia, hypertension Psychiatric history: no psych history - Past Surgical History Surgical History: angioplasty/stent Additional surgical history: TUBAL LIGATION - Social History Smoking Status: Former smoker Smokeless Tobacco Status: No Alcohol use: none Drug use: none - Family History Mother Living Status: Still Living Medications and Allergies Aspirin [Lo-Dose Aspirin EC] 81 mg PO DAILY 01/02/19 [History] Furosemide [Lasix] 40 mg PO DAILY PRN 01/02/19 [History] Lisinopril/Hydrochlorothiazide [Zestoretic 10-12.5 mg Tablet] 1 each PO DAILY 01/02/19 [History] Meloxicam [Mobic] 15 mg PO DAILY 01/02/19 [History] Nitroglycerin [Nitrostat] 0.4 mg SL Q5M PRN 01/02/19 [History] Potassium Chloride [K-Tab ER] 20 meq PO DAILY 01/02/19 [History] Ticagrelor [Brilinta] 90 mg PO BID #60 tablet 01/02/19 [Rx] Atorvastatin Calcium [Lipitor] 20 mg PO HS 04/11/19 [History] Cephalexin [Keflex] 500 mg PO QID 04/11/19 [History] Metoprolol [Lopressor] 25 mg PO BID 04/11/19 [History] Allergy/AdvReac Type Severity Reaction Status Date / Time penicillin V Allergy Rash Verified 04/11/19 17:57 All Systems Review: The remainder of the systems were reviewed and are negative - Cardiovascular Cardiovascular: as per HPI Physical Examination Vital Signs, Last 4 Hours Temp Pulse Resp BP Pulse Ox 04/12/19 06:29 97.9 F 94 16 106/75 95 Results 04/12/19 01:35 04/12/19 01:35 Lab Results 04/11/19 04/11/19 04/11/19 11:09 11:09 11:09 WBC 10.6 Hgb 13.5 Hct 42.4 Plt Count 271 INR 0.9 APTT 27.5 Sodium 140 Potassium 4.3 Chloride 104 Carbon Dioxide 27 BUN 23 Creatinine 0.96 Glucose 116 H Calcium 9.5 Troponin I < 0.03 B-Natriuretic Peptide TSH 04/11/19 04/11/19 04/12/19 11:09 16:32 01:35 WBC 9.7 Hgb 12.6 Hct 39.4 Plt Count 256 INR APTT Sodium Potassium Chloride Carbon Dioxide BUN Creatinine Glucose Calcium Troponin I B-Natriuretic Peptide 23 TSH 4.248 04/12/19 01:35 WBC Hgb Hct Plt Count INR APTT Sodium 140 Potassium 3.9 Chloride 104 Carbon Dioxide 28 BUN 23 Creatinine 0.95 Glucose 127 H Calcium 9.2 Troponin I < 0.03 B-Natriuretic Peptide TSH - Imaging and Cardiology Echo: pending Cardiac cath: report reviewed Other Results: 12hr tele reviewed: average HR 80, NSR, no events noted - EKG Interpretation EKG results cardiology: personally reviewed, normal ECG, sinus rhythm Consult Discharge Plan - Plan Referrals: Saul Quintanilla DO [Primary Care Provider] -
[2019-04-12] MEDS: hydroCHLOROthiazide 25 MG TABLET PO SCH (16:06)
--- NOTE | 2019-04-12 16:20 | Internal Med Progress Note ---
Hospitalist Progress Note - Encounter Date of Encounter: 04/12/19 Time of Encounter: 16:20 - Subjective Interval History: Patient was seen and evaluated earlier this morning-she has been a bleeding in the hallway has been experiencing increasing shortness of breath no palpitations heart rate stable. We will perform 6 minute walk test appreciate cardiology recommendations-discuss treatment plan with the patient who verbalizes understanding - Exam Vitals: Temp Pulse Resp BP Pulse Ox 98.1 F 90 18 111/66 97 04/12/19 15:51 04/12/19 15:51 04/12/19 15:51 04/12/19 15:51 04/12/19 15:51 Exam: General: Ill-appearing and in no acute distress HEENT: No erythema of posterior pharynx. No exudates. Lymphatics: No mandibular or cervical lymphadenopathy Cardiovascular: RRR. Systolic murmur No chest wall tenderness. Lungs: Clear to auscelltation bilaterally. Regular chest rise. Abdomen: Non-tender. No rebound or gaurding. Nl bowel sounds. Extremities: No edema. 2+ pulses radial and pedal pulses Skin: No rahses, abrasions, or contusions. Nl cap refill. Psych: Nl attention. 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 5/5 strength. Sensation to light touch and pinprick intact. - Assessment and Plan (1) Chest pain Current Visit: Yes Status: Acute Assessment and Plan: hx of CAD s/p LIANET to RCA 01/02/19, HTN, and HFpEF presents with chest pain in th e setting of stable vitals, unremarkable physical exam, EKG without ischemic changes, negative initial troponin, and CTA of the chest without evidence of dissection. -Patient still having intermittent cp since last [facility] -Minimal CAD in other vessels so less likely this represents ischemic heart disease unless catastrophic plaque rupture PLAN: - S/p ASA 324mg x1 then 81mg qd thereafter - Serial troponins - Continue home CHRIS, statin, and BB 04/12 We will continue with aspirin and statin beta suhas CHRIS Troponins are negative Cardiology has evaluated patient recommending repeat echo (2) CAD (coronary artery disease) Current Visit: Yes Status: Chronic Assessment and Plan: See above (3) Aortic stenosis Current Visit: Yes Status: Acute Assessment and Plan: Echo 12/08/2018: LVEF 65%, Moderate aortic stenosis with mean gradient 20 mmHg. Repeat cardiac echo today with EF of 6065% moderate to severe aortic stenosis with mean gradient of 36 mmHg-cardiology recommending repeat echo in 6 months (4) RAYA (dyspnea on exertion) Current Visit: Yes Status: Acute Assessment and Plan: Presents with dyspnea on exertion since [facility] completed in December. -No signs of heart failure on exam and patient denies orthopnea or lower extremity edema. We will obtain BNP -Hx of CAD but disease not extensive and is s/p RCA stent -Low-nl BP at baseline. May need to go down on BP meds (especially metoprolol) because this can cause exertional fatigue -Very possible patient has JOESPH with or without PH. Failed at home sleep study and prior auth needed for inpatient sleep study so hasn't completed this yet -Hx of moderate and she and her family is concerned that this has progressed and is causing her sx (unlikely given last TTE only months ago) -We will assess for thyroid disease with TSH PLAN: - Consult to cardiology given follows closely with cards and recent [facility] - Consult to cardiac rehab - may be of benefit for patient at time of discharge - Cut back on metoprolol dosing once med rec is complete - Will have SW see status of prior auth for sleep study - Limited echo to eval for progression of and R-sided pressures - TSH 04/12 Cardiology has been consulted and appreciate recommendations Cardiac rehabilitation consultation We will resume metoprolol at 12.5 mg java technical manager evaluating for prior SLEEP STUDY OUTPATIENT Cardiac echo has been completed which does show EF of 6065% moderate to severe aortic stenosis TSH within normal limits evaluating patient for possible Pheochromocytoma. 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 Hypertensive at assisted living care manager's office but normally low normal blood pressures and is symptomatic from this. Also history of diffuse episodic diaphoresis. Will check plasma metanephrines. - Cut back on metoprolol dosing once med rec is complete - Plasma metanephrines 04/12 plasma metanephrines. Pending at this time Resumed low-dose beta suhas Low-dose HCTZ Orthostatic vital signs in the a.m. - Time Spent with Patient Total time spent is greater than 50% in coordination of care (as documented) at patient's floor/unit and/or counseling patient: Internal Medicine: Result - Labs CBC & Chem 7: 04/12/19 01:35 04/12/19 01:35 Labs: Short CBC 04/12/19 Range/Units 01:35 WBC 9.7 (4.3-11.1) K/mcL Hgb 12.6 (11.5-15.4) g/dL Hct 39.4 (35.3-44.9) % Plt Count 256 (140-400) K/mcL Neutrophils # 5.9 (1.6-8.9) K/mcL BMP 04/12/19 01:35 Sodium 140 Potassium 3.9 Chloride 104 Carbon Dioxide 28 BUN 23 Creatinine 0.95 Glucose 127 H Calcium 9.2 Cardiac Enzymes 04/12/19 04/12/19 Range/Units 01:35 12:03 Troponin I < 0.03 < 0.03 (< 0.04) ng/mL - ABG Interpretation ABG results: PT/INR, D-dimer PT 9.9 Seconds (9.4-12.1) 04/11/19 11:09 - Impressions Impressions CT Dissection 04/11/19 11:00 IMPRESSION: 1. No evidence of thoracic aortic dissection, aneurysm, or intramural hematoma. 2. Coronary artery atherosclerosis. 3. Hepatic steatosis. 4. Sigmoid diverticulosis. No evidence of diverticulitis. D/ : / 04/11/2019 12:56:58 Jose Stapleton MD / ita Interpreting Provider: Jose Stapleton MD Echocardiogram 04/12/19 08:00 Impressions: LVEF 60-65%. Normal LV chamber size, wall thickness and function. Mild left ventricular diastolic dysfunction. Normal right ventricular structure and function. Aortic valve not well visualized. Grossly, the leaflets appear calcified. The number of leaflets cannot be determined. Moderate-severe aortic stenosis. Mean gradient 36 mmHg. Peak velocity 4.01 m/s. THONY 0.92 cm2. DVI 0.28. No evidence of pulmonary hypertension. Clinical correlation suggested. Left Ventricular Wall Motion: Rest Echo Findings All wall segments showed normal motion. Findings: Study Quality * Technically sub-optimal due to poor echocardiographic windows. ECG Findings * Normal sinus rhythm. Left Ventricle * LVEF 60-65%. * Normal LV chamber size, wall thickness and function. * Mild left ventricular diastolic dysfunction. Right Ventricle * Normal right ventricular structure and function. Left Atrium * Normal left atrial size. Right Atrium * Normal right atrial size. Interatrial Septum * Interatrial septum not well evaluated. Aortic Valve * Aortic valve not well visualized. Grossly, the leaflets appear calcified. The number of leaflets cannot be determined. * No aortic regurgitation. * Moderate-severe aortic stenosis. Mean gradient 36 mmHg. Peak velocity 4.01 m/s. THONY 0.92 cm2. DVI 0.28. Mitral Valve * Normal mitral valve structure and function. * No mitral regurgitation. * No mitral stenosis. Tricuspid Valve * Normal tricuspid valve structure and function. * Trace tricuspid regurgitation. * No evidence of pulmonary hypertension. Pulmonic Valve * Pulmonic valve not well visualized. * No pulmonic regurgitation. Aorta * Normally sized aortic root. Pericardium * The pericardium appears normal. IVC * Grossly normal IVC dimensions and inspiratory collapse. Pulmonary Artery * Normal visualized portions of the main pulmonary artery. Consult Discharge Plan - Plan Referrals: Saul Quintanilla DO [Primary Care Provider] - ___ (1) Chest pain Qualifiers: Chest pain type: other chest pain Qualified Code(s): R07.89 - Other chest pain; R07.8 - Other chest pain (2) CAD (coronary artery disease) Qualifiers: Coronary Disease-Associated Artery/Lesion type: [place] artery [place] vs. transplanted heart: [place] heart Associated angina: without angina Qualified Code(s): I25.10 - Atherosclerotic heart disease of [place] coronary artery without angina pectoris (3) Aortic stenosis Qualifiers: Cardiac valve disease etiology: nonrheumatic Qualified Code(s): I35.0 - Nonrheumatic aortic (valve) stenosis
[2019-04-12] MEDS ORDERED: NON-FORMULARY MEDICATION 1 EACH EACH (Atorvastatin Calcium [Lipitor] 20 MG) PO SCH (21:00)
[2019-04-13] MEDS: *HR* Heparin 5,000 UNIT/ML VIAL SQ SCH (05:16)
--- NOTE | 2019-04-13 08:57 | Cardiology Progress Note ---
<Rama Mahajan - Last Filed: 04/13/19 10:03> Date of Encounter: 04/13/19 Time of Encounter: 08:53 Assessment and Plan (1) CAD (coronary artery disease) Current Visit: Yes Status: Chronic Chest pain free at time of eval. Troponins negative x2. EKG reviewed, NSR without ischemic changes. Reports occasional chest tightness that begins in her left shoulder but believes it is related to her torn rotator cuff. Reports discomfort lasts a short time and goes away on it's own. Denies use of Nitro. -[facility] 01/02/19: severe 1v CAD, LV is normal EF 55%, successful LIANET to mid RCA, otherwise mild disease. Denies any missed doses of DAPT. Continue ASA, Brilinta, statin and BB. Cardiology will sign off at this time. Please re consult PRN. Qualifiers: Coronary Disease-Associated Artery/Lesion type: [place] artery [place] vs. transplanted heart: [place] heart Associated angina: without angina Qualified Code(s): I25.10 - Atherosclerotic heart disease of [place] coronary artery without angina pectoris (2) Hypertension Current Visit: Yes Status: Acute Blood pressure reportedly 220/140 and 240/100 when presented to see Dr. Sawant in our office yesterday. Brought to the ED and initial blood pressure was 145/98. Episodic blood pressures consistent with patient's reported home blood pressures. Orthostatic blood pressures negative. Lab results pending to assess for pheochromocytoma. Blood pressures stable over night. Will continue HCTZ 12.5mg and 12.5 Lopressor BID for now. Can titrate antihypertensives as needed as outpatient. Has f/u w/ Dr. Sawant on 04/24/19. Qualifiers: Hypertension type: unspecified Qualified Code(s): I10 - Essential (primary) hypertension (3) RAYA (dyspnea on exertion) Current Visit: Yes Status: Acute States dyspnea, diaphoresis and fatigue have been chronic but worsening in the past few months. Denies palpitations and swelling in her legs. Has Lasix at home and reportedly has not had to use it recently. Hospitalist is evaluating patient for possible Pheochromocytoma. Our office is looking into patient's home sleep study eval she had previously. Also arranging outpatient PFT. (4) Aortic stenosis Current Visit: Yes Status: Acute Echo 12/08/2018: LVEF 65%, Moderate aortic stenosis with mean gradient 20 mmHg. Repeat echo today with EF 60-65%, now with moderate-severe aortic stenosis, mean gradient 36 mmHg. Will plan to repeat echo in 6 months. Qualifiers: Cardiac valve disease etiology: nonrheumatic Qualified Code(s): I35.0 - Nonrheumatic aortic (valve) stenosis Discussion w patient/family: The assessment and plan as outlined above was discussed with the patient and/or family members who expressed understanding and agreement. All questions were answered. Thank you for involving us in the care of your patient. Please call with any questions. The above assessment and plan will be discussed with Dr. Watson and I will make changes as necessary. Subjective Principal diagnosis: HTN Interval history: Doing well this morning. Reports a bad cough yesterday while walking the halls. Objective Vital Signs, Last 4 Hours Temp Pulse Resp BP Pulse Ox 04/13/19 06:38 98.0 F 81 16 114/75 98 General: Conversant, No Apparent Distress HEENT: Atraumatic, Normocephaly, Mucus Membranes Moist Cardiac: Reg Rate and Rhythm, Normal S1 and S2, Other (aortic systolic murmur auscultated ) Lungs: Normal Breath Sounds, No Wheeze, Rales, Rhonchi Neuro: Alert and responsive, No focal deficits noted Abdomen: Soft, Non-Tender Skin: No rashes noted on visualized skin Musculoskeletal: No Chest Wall Tenderness Extremities: No Clubbing, No Cyanosis, No Edema, Normal Pulses Results 04/12/19 01:35 04/12/19 01:35 Lab Results 04/12/19 12:03 Troponin I < 0.03 - Imaging and Cardiology Other Results: 12hr tele reviewed: Average HR 82, NSR, no events noted Consult Discharge Plan - Plan Referrals: [facility] [Provider Group] (An appointment has been requested. The office will contact you at home to schedule an appointment. ) Saul Quintanilla DO [Primary Care Provider] - 04/18/19 9:30 am <Jayne Watson - Last Filed: 04/13/19 11:46> Date of Encounter: 04/13/19 Assessment and Plan Discussion w patient/family: I examined this patient and my medical decision-making was reviewed with the FREIGHT CHECKER. I agree with the documented findings, disposition and treatment plan as described. Objective Vital Signs, Last 4 Hours Temp Pulse Pulse Pulse Pulse Resp BP 04/13/19 10:42 97.7 F 87 76 79 83 16 122/81 BP BP BP Pulse Ox 04/13/19 10:42 122/81 126/84 138/84 96 Results 04/12/19 01:35 04/12/19 01:35 Lab Results 04/12/19 12:03 Troponin I < 0.03
[2019-04-13] MEDS: Aspirin Enteric Coated 81 MG Tablet PO SCH (09:40)
[2019-04-13] MEDS: hydroCHLOROthiazide 25 MG TABLET PO SCH (09:40)
[2019-04-13] MEDS: *HR* Ticagrelor 90 MG TABLET PO SCH (09:41)
[2019-04-13 10:43] VITALS: BP 122/81
[2019-04-13] MEDS ORDERED: Acetaminophen 325 MG TABLET PO PRN (11:38)
--- NOTE | 2019-04-13 13:19 | Discharge Summary ---
- NOTES TO OUTPATIENT PROVIDER Notes to Outpatient Provider: Patient will need follow-up with pulmonology suspect undiagnosed COPD-will need PFTs as outpatient as well as sleep study for JOSEPH. Patient will need to monitor aortic stenosis and will have a follow-up echo per cardiology in 6 months. Patient placed on hydrochlorothiazide 12.5 mg as well as Lopressor 12.5 twice a day patient will need to monitor blood pressure-monitor/ titrate as needed Orders not resulted at time of discharge: Pending orders 04/11/19 16:32 Metanephrines, Plasma (Free) Stat Date of Encounter: 04/13/19 Time of Encounter: 13:17 - Discharge Diagnosis (1) Chest pain Priority: Primary Status: Acute Qualifiers: Chest pain type: other chest pain Qualified Code(s): R07.89 - Other chest pain; R07.8 - Other chest pain (2) CAD (coronary artery disease) Priority: Secondary Status: Chronic Qualifiers: Coronary Disease-Associated Artery/Lesion type: [place] artery [place] vs. transplanted heart: [place] heart Associated angina: without angina Qualified Code(s): I25.10 - Atherosclerotic heart disease of [place] coronary artery without angina pectoris (3) Aortic stenosis Priority: Secondary Status: Acute Qualifiers: Cardiac valve disease etiology: nonrheumatic Qualified Code(s): I35.0 - Nonrheumatic aortic (valve) stenosis (4) RAYA (dyspnea on exertion) Priority: Secondary Status: Acute (5) Labile blood pressure Priority: Secondary Status: Acute Hospital course: Ms. Singh is a 59 year old female past medical history of CAD with drug-eluting stent to RCA 01/02/2019 hypertension H PEF and aortic stenosis. 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 Patient states she never really fully recovered from her cardiac catheter procedure and since procedures she has been experiencing profound RAYA. Denies any orthopnea or alert 70 edema. Occasionally having exertional chest pain at least 1-2 times per week that resolves with rest. She has had variable blood pressure since her [facility]. On presentation to the cardiology office she did have a systolic of greater than 220. In the ER initial blood pressure was 129/72 EKG without any ischemic changes and troponins were negative. Chest x-ray and CTA w ere completed chest x-ray with nothing acute CTA with no dissection patient was evaluated by cardiology who did hold all blood pressure medications and obtained a cardiac echo repeat cardiac echo with EF of 6065% with moderate to severe aortic stenosis and mean gradient of 36 mmHg recommending repeat echo and 6 months.-Orthostatic blood pressures were obtained and were stable lab results pending to assess for pheochromocytoma patient was placed on HCTZ 12.5 as well as Lopressor 12.5 twice a day. Patient's blood pressure was stable overnight patient has been a bleeding in the hallway without any symptoms of shortness of breath diaphoresis or chest pain. Patient is currently being evaluated for JOSEPH, she has been a longtime smoker and just quit smoking approximately year ago she is scheduled to have PFTs as outpatient for possible COPD. Suspect that COPD may be contributing to the patient's symptoms of shortness of breath. Patient will follow-up with cardiology and pulmonology and primary care provider. Patient verbalizes understanding and will discharge patient with rescue inhaler metoprolol 12.5 as well as hydrochlorothiazide 12.5. She is hemodynamically stable and ready for discharge. - Time Spent with Patient Total time spent providing and/or coordinating discharge services: - Discharge Medications Prescriptions: New hydroCHLOROthiazide [Hydrochlorothiazide] 12.5 mg PO DAILY #30 tablet Metoprolol [Lopressor] 12.5 mg PO BID #30 tablet Albuterol Sulfate [Proair Respiclick] 90 mcg IH Q6HR PRN #1 [email or web address] PRN Reason: Shortness Of Breath/Wheezing Continued Nitroglycerin [Nitrostat] 0.4 mg SL Q5M PRN PRN Reason: Chest Pain Meloxicam [Mobic] 15 mg PO DAILY Aspirin [Lo-Dose Aspirin EC] 81 mg PO DAILY Ticagrelor [Brilinta] 90 mg PO BID #60 tablet Potassium Chloride [K-Tab ER] 20 meq PO DAILY Atorvastatin Calcium [Lipitor] 20 mg PO HS Discontinued Lisinopril/Hydrochlorothiazide [Zestoretic 10-12.5 mg Tablet] 1 each PO DAILY Metoprolol [Lopressor] 25 mg PO BID No Action Furosemide [Lasix] 40 mg PO DAILY PRN PRN Reason: Edema Cephalexin [Keflex] 500 mg PO QID Home Medications: Aspirin [Lo-Dose Aspirin EC] 81 mg PO DAILY 01/02/19 [History] Furosemide [Lasix] 40 mg PO DAILY PRN 01/02/19 [History] Meloxicam [Mobic] 15 mg PO DAILY 01/02/19 [History] Nitroglycerin [Nitrostat] 0.4 mg SL Q5M PRN 01/02/19 [History] Potassium Chloride [K-Tab ER] 20 meq PO DAILY 01/02/19 [History] Ticagrelor [Brilinta] 90 mg PO BID #60 tablet 01/02/19 [Rx] Atorvastatin Calcium [Lipitor] 20 mg PO HS 04/11/19 [History] Cephalexin [Keflex] 500 mg PO QID 04/11/19 [History] Albuterol Sulfate [Proair Respiclick] 90 mcg IH Q6HR PRN #1 [email or web address] 04/13/19 [Rx] Metoprolol [Lopressor] 12.5 mg PO BID #30 tablet 04/13/19 [Rx] hydroCHLOROthiazide [Hydrochlorothiazide] 12.5 mg PO DAILY #30 tablet 04/13/19 [Rx] Allergies/Adverse Reactions: Allergy/AdvReac Type Severity Reaction Status Date / Time penicillin V Allergy Rash Verified 04/11/19 17:57 Date of admission: 04/11/19 13:54 Primary care physician: Saul Quintanilla DO Consults: 04/11/19 16:20 Consult to Cardiac Rehabilitation-Phase1 [CONS] Routine Comment: Reason for Consult: s/p stent in December and profound RAYA since then Call Completed: No Consult to Cardiology [CONS] Routine Comment: Consulting Provider: [facility] Reason for Consult: Ongoing cp and RAYA after recent C with stents Call Completed: No Discharging clinician: Ana Edwards Anticipated date of discharge: 04/13/19 - Constitutional Vitals: Temp Pulse Resp BP Pulse Ox 97.7 F 83 16 138/84 96 04/13/19 10:42 04/13/19 10:42 04/13/19 10:42 04/13/19 10:42 04/13/19 10:42 Exam: General: Ill-appearing and in no acute distress HEENT: No erythema of posterior pharynx. No exudates. Lymphatics: No mandibular or cervical lymphadenopathy Cardiovascular: RRR. Systolic murmur No chest wall tenderness. Lungs: Clear to auscelltation bilaterally. Regular chest rise. Abdomen: Non-tender. No rebound or gaurding. Nl bowel sounds. Extremities: No edema. 2+ pulses radial and pedal pulses Skin: No rahses, abrasions, or contusions. Nl cap refill. Psych: Nl attention. A&Ox3 Neuro: sewer pipe layer II-XII intact. 5/5 strength. Sensation to light touch and pinprick intact. - Patient Status Disposition: Home, Self-Care Condition: Fair Functional capacity at discharge: independent ambulation Overall status at discharge: patient is back to baseline - Discharge Instructions Follow Up With: [facility] [Provider Group] (An appointment has been requested. The office will contact you at home to schedule an appointment. ) Saul Quintanilla DO [Primary Care Provider] - 04/18/19 9:30 am - Diet and Activity Activity: increase activity as tolerated Diet: advance to your usual diet
[2019-04-15 17:10] LABS: Metanephrine, Plasma 0.11 nmol/L (0.00-0.49)
== END 2019-04-13 15:54 | disposition home or self-care (01) ==
LOC: 3BNU 10:31 → EMEROOARM 10:31 → 3BNU 14:43
PROVIDERS: ADMIT Internal Medicine; ATTEND Internal Medicine